=== PATIENT | male | born 1955 | race Caucasian/White ===

== ENCOUNTER 2017-11-24 07:56 | Outpatient (CLI) | payer BC ==
--- NOTE | 2017-11-24 11:38 | MRI ---
MRI OF THE RIGHT KNEE WITHOUT CONTRAST: Date: 11/24/17 INDICATION: Right knee pain with concern for meniscal tear. History of stepping in a hole and twisting right knee on 09/20/16. COMPARISON: None. FINDINGS: There are mild marginal osteophytes affecting all major compartments of the right knee. There is mode rate chondrosis affecting the medial femorotibial joint compartment. There is moderate to severe melodie drosis affecting the patellofemoral compartment. There is a horizontally oriented tear involving the posterior body, posterior junction, and posterior horn of the medial meniscus with associated posteri or parameniscal cyst measuring 2.8 x 2.4 cm. The cyst extends medially and posterior to the PCL. The lateral meniscus is intact. The PCL, ACL, MCL, and LCLC extensor mechanism are intact. IT band and po pliteus appear within normal limits. There is a tiny Martin's cyst. IMPRESSION: 1. Mild osteoarthrosis of the right knee predominantly affecting the medial femorotibial and patello femoral compartments. 2. Medial meniscal tear with associated parameniscal cyst. 3. Small Martin's cyst. POS: [facility]
== END 2017-11-24 07:57 | disposition home or self-care (01) ==
LOC: SCSMRI 07:56
PROVIDERS: ATTEND Orthopaedic Surgery
DX: S83.241A Other tear of medial meniscus, current injury, right knee, initial encounter (principal); M25.561 Pain in right knee; M71.21 Synovial cyst of popliteal space [Baker], right knee

== ENCOUNTER 2017-12-03 15:15 | Outpatient (CLI) | payer BC ==
[2017-12-03 15:46] LABS: #Basophils 0.1 thou/uL (0.0-0.2); #Eosinphils 0.3 thou/uL (0.0-0.7); #Monocytes 0.7 thou/uL (0.11-0.59); %Basophils 0.8 % (0.0-1.0); %Eosinophils 3.1 % (0.0-10.0); %Monocytes 6.4 % (0.0-10.0); %Neutrophils 71.6 % (42.0-75.0); Hemoglobin 15.2 g/dL (14.0-18.0); Mean Corpuscular HGB CONC 34.1 g/dL (32.0-36.0); Mean Corpuscular Volume 87.9 fl (80.0-94.0); Mean Platelet Volume 6.7 fL (7.4-10.4); Platelet Count 308 thou/uL (130-400); RBC Distribution Width 12.6 % (11.5-14.5); Red Blood Cell (RBC) Count 5.05 mill/uL (4.70-6.10); White Blood Cell (WBC) Count 11.1 thou/uL (4.8-10.8)
[2017-12-03 16:06] LABS: Anion Gap 12 mmol/L (10-20); BUN (Urea Nitrogen) 13 mg/dL (8.4-25.7); Calc. Creatinine Clearance 0 mL/min (70-130); Calcium 9.4 mg/dL (7.8-10.44); Carbon Dioxide 21 mmol/L (23-31); Chloride 109 mmol/L (98-107); Estimated GFR-MDRD 79; Glucose 175 mg/dL (80-115); Potassium 4.4 mmol/L (3.5-5.1); Sodium 138 mmol/L (136-145)
--- NOTE | 2017-12-04 20:21 | EKG ---
Test Reason : Blood Pressure : / mmHG Vent. Rate : 069 BPM Atrial Rate : 069 BPM P-R Int : 158 ms QRS Dur : 100 ms QT Int : 414 ms P-R-T Axes : 045 -15 096 degrees QTc Int : 443 ms Normal sinus rhythm Low voltage QRS Inferior infarct , age undetermined Cannot rule out Anterior infarct , age undetermined Abnormal ECG When compared with ECG of 03-MAR-2010 08:39, Inverted T waves have replaced nonspecific T wave abnormality in Lateral leads Confirmed by LUIS HERNANDEZ, SKristin ([id number]) on 12/04/2017 8:20:29 PM Referred By: IERO Confirmed By:DR. Celina SMITH MD
== END 2017-12-03 15:16 | disposition home or self-care (01) ==
LOC: LABBT 15:15
PROVIDERS: ATTEND Orthopaedic Surgery
DX: Z01.818 Encounter for other preprocedural examination (principal); S83.206A Unspecified tear of unspecified meniscus, current injury, right knee, initial encounter; R94.31 Abnormal electrocardiogram [ECG] [EKG]
CPT/HCPCS: 80048; 85025; 93005; 93010

== ENCOUNTER 2017-12-05 05:34 | Day surgery (SDC) | payer BC ==
[2017-12-03 15:42] VITALS: BMI 35.9
[2017-12-05] MEDS ORDERED: CEFAZOLIN/Water 2 GM/20 ML SYRINGE ONE (06:25)
[2017-12-05] MEDS ORDERED: PROPOFOL 20 ML ONE (06:52)
[2017-12-05] MEDS ORDERED: HYDROmorphone 0.5 MG/0.5 ML SYRINGE ONE (07:19)
[2017-12-05] MEDS ORDERED: Midazolam HCl 2 mg/2 ml Vial ONE (07:30)
[2017-12-05] MEDS ORDERED: Ketorolac Tromethamine 30 MG/ML VIAL ONE ×2 (08:46→13:39)
--- NOTE | 2017-12-05 10:56 | OP ---
DATE OF PROCEDURE: 12/05/2017 PREOPERATIVE DIAGNOSIS: Right knee medial meniscus tear. POSTOPERATIVE DIAGNOSES: Right knee medial meniscus tear. PROCEDURE PERFORMED: Right knee arthroscopy, partial medial meniscectomy. SURGEON: Dr. Sharan Smith CIGARETTE MAKER: None. BLOOD LOSS: Minimal. COMPLICATIONS: None. ANESTHESIA: The patient had general as well as a local knee block. DISPOSITION: He went to recovery in stable condition. INDICATIONS: A 61-year-old male comes in complaining of pain, catching, and swelling in the right kn ee. This has been unamenable to nonoperative treatment. At this time, he opted for surgery. OPERATIVE PROCEDURE: After all appropriate consent forms were explained and signed, he was taken to the operating room and at this time was given general anesthetic. Once the level of anesthesia was a ppropriate, the tourniquet was placed on the right thigh and the leg was placed in the arthroscopic l eg frey. The limb was then prepped and draped in standard surgical fashion. Limb was exsanguinate d, tourniquet taken to 300 mmHg. An inferolateral portal was established and the scope was placed in to the knee joint. A needle localization technique was then used to make a medial working portal. D iagnostic arthroscopy commenced in the notch. ACL and PCL probed and found to be intact. The medial compartment showed there to be some grade 2 and some areas of grade 3 wear in the medial femoral con dyle. There were some small unstable chondral flaps which were gently debrided. The medial meniscus was found to have a complex tear of the posterior horn with some flat undersurface components and a partial meniscectomy was performed using meniscal biter and shaver back to a stable base. At this ti me, the lateral compartment was entered and overall was found to be in normal condition. The gutters were swept through and no loose bodies were noted. The patellofemoral joint found the superior face t of the patella to have some wear, the remaining patella was in good condition. The trochlea itself was in good condition, but medial to the trochlea there was some wear on the medial femoral condyle. At this time, the scope was removed, the knee was drained, and the portals were closed with a simpl e nylon stitch. Bulky sterile dressing was applied and at this time, tourniquet was let down. Toes pinked up nicely. The patient was awakened. He was taken to the recovery room in stable condition. All counts were correct at the end of the case and he did receive preoperative IV antibiotics.
[2017-12-05] MEDS ORDERED: Ondansetron HCl/PF 4 MG/2 ML Vial ONE (13:39)
[2017-12-05] MEDS ORDERED: Lidocaine 1% PF 5 ML VIAL ONE (13:39)
[2017-12-05] MEDS ORDERED: PROPOFOL 200 MG/20 ML VIAL ONE (13:39)
== END 2017-12-05 10:45 | disposition home or self-care (01) ==
LOC: SDC 05:34
PROVIDERS: ATTEND Orthopaedic Surgery
PROC: 0SBC4ZZ Excision of Right Knee Joint, Percutaneous Endoscopic Approach (ICD-10-PCS; principal; 2017-12-05)
DX: S83.231A Complex tear of medial meniscus, current injury, right knee, initial encounter (principal); Z98.890 Other specified postprocedural states
CPT/HCPCS: G8978-GP-CI; G8979-GP-CI; G8980-GP-CI; J1170; J1885; J2250; J2704

== ENCOUNTER 2022-10-25 07:46 | Outpatient (CLI) | payer MEDICARE, OTHER | END 2022-10-25 07:47 | disposition home or self-care (01) | LOC: SCSMRI 07:46 | PROVIDERS: ATTEND Orthopaedic Surgery | DX: S83.105A Unspecified dislocation of left knee, initial encounter (principal); S83.242A Other tear of medial meniscus, current injury, left knee, initial encounter; S82.142A Displaced bicondylar fracture of left tibia, initial encounter for closed fracture ==

== ENCOUNTER 2022-11-18 12:54 | Outpatient (CLI) | payer MEDICARE, OTHER ==
[2022-11-18 13:44] LABS: Bilirubin Neg (Negative); Blood, Urine 25 (Negative); Clarity Clear (Clear); Glucose, Urine (Dipstick) >=1000 mg/dL (Negative); Ketone, Urine Negative (Negative); Leukocyte Negative (Negative); Nitrite Negative (Negative); Protein, Urine (Dipstick) Negative (Neg-Trace); Urobilinogen Normal mg/dL (Less than 2)
[2022-11-18 14:37] LABS: #Basophils 0.1 10x3/uL (0.0-0.2); #Eosinphils 0.3 10x3/uL (0.0-0.5); #Monocytes 0.7 10x3/uL (0.0-1.1); #Neutrophils 5.5 10x3/uL (1.5-8.4); %Basophils 0.7 % (0.0-2.0); %Eosinophils 3.3 % (0.0-6.0); %Lymphocytes 27.8 % (18.0-47.0); %Neutrophils 59.9 % (40.0-75.0); Hemoglobin 15.5 g/dL (13.5-17.5); Mean Corpuscular HGB CONC 33.1 g/dL (32.0-36.0); Mean Corpuscular Volume 84.5 fl (81.2-95.1); Mean Platelet Volume 9.8 fl (7.4-10.4); Platelet Count 284 10x3/uL (150-450); Red Blood Cell (RBC) Count 5.54 10x6/uL (4.32-5.72); White Blood Cell (WBC) Count 9.2 10x3/uL (3.5-10.5)
[2022-11-18 16:09] LABS: Anion Gap 12 mmol/L (10-20); BUN (Urea Nitrogen) 18 mg/dL (8.4-25.7); Calc. Creatinine Clearance 0 mL/min (70-130); Calcium 9.2 mg/dL (7.8-10.44); Carbon Dioxide 21 mmol/L (23-31); Chloride 105 mmol/L (98-107); Estimated GFR 75; Glucose 212 mg/dL (80-115); Potassium 4.4 mmol/L (3.5-5.1); Sodium 134 mmol/L (136-145)
== END 2022-11-18 12:55 | disposition home or self-care (01) ==
LOC: LABBT 12:54
PROVIDERS: ATTEND Orthopaedic Surgery
DX: Z01.818 Encounter for other preprocedural examination (principal); S83.242A Other tear of medial meniscus, current injury, left knee, initial encounter
CPT/HCPCS: 71046; 80048; 81003; 85025; 93005; 93010

== ENCOUNTER 2022-11-20 07:20 | Day surgery (SDC) | payer MEDICARE, OTHER ==
[2022-11-18 13:24] VITALS: BMI 34.4
[2022-11-20] MEDS ORDERED: CEFAZOLIN 2 GM VIAL ONE ×2 (09:50→11:54)
[2022-11-20] MEDS ORDERED: Sodium Chloride 0.9% 100 ML ONE ×2 (09:50→11:54)
[2022-11-20] MEDS ORDERED: Bupivacaine HCl 0.5%/Epinephrine 1:200,000/PF 30 ml Vial ONE (10:30)
[2022-11-20] MEDS ORDERED: Lidocaine 2% PF 5 ML VIAL ONE (10:30)
[2022-11-20] MEDS ORDERED: fentaNYL 50 mcg/mL 1 mL Vial ONE (11:46)
[2022-11-20] MEDS ORDERED: PROPOFOL 200 MG/20 ML VIAL ONE (12:00)
[2022-11-20] MEDS ORDERED: Ketorolac Tromethamine 30 MG/ML VIAL ONE (12:00)
[2022-11-20] MEDS ORDERED: Ondansetron PF 4 MG/2 ML Vial ONE (12:00)
== END 2022-11-20 15:50 | disposition home or self-care (01) ==
LOC: SDC 07:20
PROVIDERS: ATTEND Orthopaedic Surgery
PROC: 0SBD4ZZ Excision of Left Knee Joint, Percutaneous Endoscopic Approach (ICD-10-PCS; principal; 2022-11-20)
DX: S83.232A Complex tear of medial meniscus, current injury, left knee, initial encounter (principal); M23.42 Loose body in knee, left knee; E11.9 Type 2 diabetes mellitus without complications; I10 Essential (primary) hypertension; Z79.4 Long term (current) use of insulin; Z79.82 Long term (current) use of aspirin; Z79.84 Long term (current) use of oral hypoglycemic drugs; Z79.85 Long-term (current) use of injectable non-insulin antidiabetic drugs; Z79.899 Other long term (current) drug therapy; Z88.8 Allergy status to other drugs, medicaments and biological substances; Z95.1 Presence of aortocoronary bypass graft; X50.1XXA Overexertion from prolonged static or awkward postures, initial encounter
CPT/HCPCS: 29881; J3010; J1885; J2001; J2405; J2704; J3490

== ENCOUNTER 2024-07-20 08:26 | Outpatient (CLI) | payer MEDICARE, OTHER | END 2024-07-20 08:27 | disposition home or self-care (01) | LOC: CT 08:26 | PROVIDERS: ATTEND Orthopaedic Surgery | DX: M17.12 Unilateral primary osteoarthritis, left knee (principal); N40.0 Benign prostatic hyperplasia without lower urinary tract symptoms; M25.462 Effusion, left knee; M71.22 Synovial cyst of popliteal space [Baker], left knee; M89.9 Disorder of bone, unspecified | CPT/HCPCS: 80048; 85025; 85610; 85730; 87081; 93005; 93010 ==

== ENCOUNTER 2024-07-20 09:12 | Outpatient (CLI) | payer MEDICARE, OTHER ==
[2024-07-20 10:22] LABS: #Basophils 0.08 10x3/uL (0.0-0.2); %Basophils 0.9 % (0.0-1.0); %Eosinophils 4.6 % (0.0-10.0); %Lymphocytes 27.9 % (21.0-51.0); %Monocytes 8.9 % (0.0-10.0); %Neutrophils 57.4 % (42.0-75.0); Hematocrit 50.1 % (42.0-52.0); Hemoglobin 16.6 g/dL (14.0-18.0); Mean Corpuscular HGB CONC 33.1 g/dL (32.0-36.0); Mean Corpuscular Volume 87.6 fL (78.0-98.0); Platelet Count 281 10x3/uL (130-400); RBC Distribution Width 13.7 % (11.5-14.5); Red Blood Cell (RBC) Count 5.72 mill/uL (4.70-6.10)
[2024-07-20 10:35] LABS: INR-International Normal Ratio 0.9; Prothrombin Time 11.8 sec (12.0-14.7)
[2024-07-20 10:36] LABS: PTT 27.4 sec (22.9-36.1)
[2024-07-20 11:33] LABS: Anion Gap 16 mmol/L (10-20); BUN (Urea Nitrogen) 13 mg/dL (8.4-25.7); Calc. Creatinine Clearance 0 mL/min (70-130); Carbon Dioxide 20 mmol/L (23-31); Chloride 109 mmol/L (98-107); Estimated GFR 93; Glucose 110 mg/dL (80-115); Potassium 4.5 mmol/L (3.5-5.1); Sodium 140 mmol/L (136-145)
== END 2024-07-20 09:13 | disposition home or self-care (01) ==
LOC: LABBT 09:12
PROVIDERS: ATTEND Orthopaedic Surgery
DX: Z01.818 Encounter for other preprocedural examination (principal); M17.12 Unilateral primary osteoarthritis, left knee
CPT/HCPCS: 80048; 85025; 85610; 85730; 87081

== ENCOUNTER 2024-07-27 05:33 | Observation (INO) | payer MEDICARE, OTHER ==
[2024-07-20 09:31] VITALS: BMI 33.5
[2024-07-27] MEDS ORDERED: EPINEPHrine 1 MG/ML VIAL ONE (06:16)
[2024-07-27] MEDS ORDERED: Bupivacaine 0.25% HCL 30 ML VIAL ONE (06:16)
[2024-07-27] MEDS ORDERED: Tranexamic Acid 1,000 MG/10 ML VIAL ONE (06:31)
[2024-07-27] MEDS ORDERED: Vancomycin (BATCH) 300 ML ONE (06:32)
[2024-07-27] MEDS ORDERED: Sodium Chloride 0.9% 100 ML ONE (06:32)
[2024-07-27] MEDS ORDERED: fentaNYL PF 100 MCG/2 ML SYRINGE ONE (06:37)
[2024-07-27] MEDS ORDERED: Midazolam HCl 2 mg/2 ml Vial ONE (06:37)
[2024-07-27] MEDS ORDERED: CEFAZOLIN 2 GM VIAL ONE (06:50)
[2024-07-27] MEDS ORDERED: PROPOFOL 40 ML ONE (07:02)
[2024-07-27] MEDS ORDERED: ePHEDrine Sulfate 50 MG/10 ML VIAL ONE (07:17)
[2024-07-27] MEDS ORDERED: Metoclopramide HCl 10 MG (2 mL) VIAL ONE (07:20)
[2024-07-27] MEDS ORDERED: Dexamethasone 20 MG/5 ML VIAL ONE (07:20)
[2024-07-27] MEDS ORDERED: Ondansetron PF 4 MG/2 ML Vial ONE (07:20)
[2024-07-27] MEDS ORDERED: Ondansetron PF 4 MG/2 ML Vial IVP PRN ×2 (07:30→09:21)
[2024-07-27] MEDS ORDERED: Promethazine HCl 25 MG/ML VIAL IM PRN ×2 (07:30→09:21)
[2024-07-27] MEDS ORDERED: fentaNYL 50 mcg/mL 1 mL Vial SLOW IVP PRN (07:30)
[2024-07-27] MEDS ORDERED: Zolpidem Tartrate 5 MG TAB PO PRN ×2 (07:30→09:21)
[2024-07-27] MEDS ORDERED: traMADol HCl 50 MG TAB PO PRN ×2 (07:30)
[2024-07-27] MEDS ORDERED: Ropivacaine 0.2% 550 ML 550 ML NERVE BLCK SCH (07:30)
[2024-07-27] MEDS ORDERED: HYDROcodone/Acetaminophen 10/325 mg Tablet PO PRN ×2 (07:30)
[2024-07-27] MEDS ORDERED: PHENYLEPHRINE-NS 100 MCG/ML 10 ML SYRINGE ONE (07:32)
[2024-07-27] MEDS ORDERED: Calcium Chloride 1 GM/10 ML Abboject SYRINGE ONE (07:32)
[2024-07-27] MEDS ORDERED: Glycopyrrolate 0.2 MG/ML 5 ML SYRINGE ONE (07:35)
[2024-07-27] MEDS ORDERED: Lidocaine 1% (PF) 30 ML VIAL ONE (07:54)
[2024-07-27] MEDS ORDERED: Ropivacaine 0.5% HCl/PF (150 MG/30 ML VIAL) ONE (07:54)
[2024-07-27] MEDS ORDERED: Esmolol 100 MG/10 ML VIAL ONE (08:15)
[2024-07-27] MEDS ORDERED: fentaNYL 50 mcg/mL 1 mL Vial ONE (08:45)
[2024-07-27] MEDS ORDERED: Acetaminophen 325 MG TAB PO PRN (09:21)
[2024-07-27] MEDS ORDERED: diphenhydrAMINE 25 MG CAP PO PRN (09:21)
[2024-07-27] MEDS ORDERED: Fluticasone Propionate Nasal Spray 16 gm Bottle NASAL PRN ×2 (09:24→09:47)
[2024-07-27] MEDS ORDERED: HumaLOG 300 UNITS/3 ML VIAL SC PRN (09:24)
[2024-07-27] MEDS ORDERED: Insulin Lispro 100 UNIT/ML 10 ML VIAL SC PRN ×3 (09:48→20:49)
[2024-07-27] MEDS: Sodium Chloride 0.9% 1,000 ML IV SCH (10:53)
[2024-07-27] MEDS: Multivitamin W/ Minerals 1 TAB PO SCH (10:54)
[2024-07-27] MEDS: Senokot S 8.6-50 MG TAB PO SCH (10:54)
[2024-07-27] MEDS: Ferrous Gluconate 324 MG TAB PO SCH (10:54)
[2024-07-27] MEDS: Aspirin 81 mg Enteric Coated Tablet PO SCH (11:00)
[2024-07-27] MEDS: Ketorolac Tromethamine 30 MG (1 mL) VIAL IVP SCH (11:21)
[2024-07-27] MEDS: CEFAZOLIN 2 GM in Sodium Chloride 0.9% 100 ML IVPB SCH (13:04)
[2024-07-27] MEDS: Insulin Glargine 30 UNITS/0.3 ML VIAL SC SCH (15:10)
[2024-07-27] MEDS ORDERED: METFORMIN HCL 1000 MG PO SCH (17:00)
[2024-07-27] MEDS: metFORMIN 500 MG TAB PO SCH (17:04)
[2024-07-27] MEDS ORDERED: Dextrose 50% Abboject 50 ML SYRINGE SLOW IVP PRN (20:49)
[2024-07-27] MEDS ORDERED: Dextrose 5% in Water 1,000 ML IV PRN (20:49)
[2024-07-27] MEDS ORDERED: Glucagon 1 MG/ML KIT IM PRN (20:49)
[2024-07-27] MEDS: Atorvastatin Calcium 40 MG TAB PO SCH (21:22)
[2024-07-27] MEDS: Metoprolol Succinate XL 25 MG ER.TAB PO SCH (21:22)
[2024-07-28 05:27] LABS: Hematocrit 41.3 % (42.0-52.0); Hemoglobin 13.6 g/dL (14.0-18.0); Mean Corpuscular HGB CONC 32.9 g/dL (32.0-36.0); Mean Corpuscular Hemoglobin 29.2 pg (27.0-31.0); Mean Corpuscular Volume 88.8 fL (78.0-98.0); Mean Platelet Volume 9.1 fL (7.4-10.4); Platelet Count 251 10x3/uL (130-400); RBC Distribution Width 13.5 % (11.5-14.5); Red Blood Cell (RBC) Count 4.65 mill/uL (4.70-6.10)
[2024-07-28] MEDS: Insulin Glargine 30 UNITS/0.3 ML VIAL SC SCH (05:58)
[2024-07-28] MEDS: Empagliflozin 25 MG TAB PO SCH (08:20)
[2024-07-28] MEDS: Lisinopril 2.5 MG TAB PO SCH (08:21)
[2024-07-28] MEDS: Pantoprazole 40 MG DR.TAB PO SCH (08:22)
[2024-07-28] MEDS ORDERED: Non-Formulary Item 1 EACH (Omeprazole [Omeprazole] 20 MG Tablet.Dr) PO SCH (09:00)
[2024-07-28] MEDS ORDERED: Lisinopril 5 MG TAB PO SCH (09:00)
[2024-07-28] MEDS ORDERED: Non-Formulary Item 1 EACH (Multivitamin [Multivitamin] 1 EACH Tablet) PO SCH (09:00)
[2024-07-28] MEDS ORDERED: Empagliflozin 25 MG TAB PO SCH (09:00)
[2024-07-28 12:31] VITALS: BP 104/62; TEMP 98.2
== END 2024-07-28 13:30 | disposition home or self-care (01) ==
LOC: SDC 05:33 → SURG B 06:48 → SDC 12:59 → SURG B 12:59
PROVIDERS: ADMIT Orthopaedic Surgery; ATTEND Orthopaedic Surgery
PROC: 0SRD0JZ Replacement of Left Knee Joint with Synthetic Substitute, Open Approach (ICD-10-PCS; principal; 2024-07-27)
PROC: 3E0T3BZ Introduction of Anesthetic Agent into Peripheral Nerves and Plexi, Percutaneous Approach (ICD-10-PCS; 2024-07-27)
DX: M17.12 Unilateral primary osteoarthritis, left knee (principal); E11.9 Type 2 diabetes mellitus without complications; I11.0 Hypertensive heart disease with heart failure; I50.9 Heart failure, unspecified; G47.33 Obstructive sleep apnea (adult) (pediatric); K21.9 Gastro-esophageal reflux disease without esophagitis; I25.10 Atherosclerotic heart disease of native coronary artery without angina pectoris; E78.5 Hyperlipidemia, unspecified; Z90.49 Acquired absence of other specified parts of digestive tract; Z98.890 Other specified postprocedural states; Z91.018 Allergy to other foods; Z88.1 Allergy status to other antibiotic agents; Z98.49 Cataract extraction status, unspecified eye; Z95.1 Presence of aortocoronary bypass graft; Z90.89 Acquired absence of other organs; Z79.84 Long term (current) use of oral hypoglycemic drugs; Z79.4 Long term (current) use of insulin; Z79.899 Other long term (current) drug therapy
CPT/HCPCS: 0055T; 27447; 64448; 36415; 36416; 85027; A4306; C1713; C1776; C1889; J0171; J0665; J1100; J1815; J1885; J2250; J2405; J2704; J2765; J2795; J3010; J3370